=== PATIENT | male | born 2000 | race Hispanic/Latino ===

== ENCOUNTER 2020-02-28 09:36 | Emergency (ER) | payer SELFPAY ==
[~2020-02-28] VITALS: Ht 157.5 cm; Wt 62.0 kg
[2020-02-28 11:40] VITALS: BP 121/65
--- NOTE | 2020-03-01 09:25 | NUR ---
Patient notified of positive Covid results by Kylie Barahona (cork grinder). Advised patient to quarantine until contacted by the [facility]. Advised patient to return to [facility] with any difficulty breathing or other needs. patient verbalized understanding.
== END 2020-02-28 11:42 | disposition home or self-care (01) | DRG 179 ==
LOC: ED 09:36
DX: U07.1 COVID-19 (principal)